=== PATIENT | male | born 1985 | race American Indian/Alaskan Native ===

== ENCOUNTER 2016-09-30 17:05 | Emergency (ER) | payer OTHER ==
[2016-09-30 18:05] LABS: Urine Drugs of Abuse Note Disclamer
[2016-09-30 18:14] LABS: Basophils % (Auto) 0.5 % (0.0-1.8); Eosinophils % (Auto) 1.1 % (0.0-4.3); Hematocrit 41.9 % (35.5-45.6); Hemoglobin 13.8 gm/dl (11.8-15.2); Mean Corpuscular HGB Conc 33 % (32-34); Mean Corpuscular Hemoglobin 30 pg (28-32); Mean Corpuscular Volume 90 fl (84-94); Platelet Count 167 K/mm3 (140-440); Red Blood Count 4.66 M/mm3 (3.65-5.03); Red Cell Distribution Width 14.6 % (13.2-15.2)
[2016-09-30 18:33] LABS: Anion Gap 20 mmol/L; BUN/Creatinine Ratio 13.75; Blood Urea Nitrogen 11 mg/dL (9-20); Calcium 9.1 mg/dL (8.4-10.2); Carbon Dioxide 27 mmol/L (22-30); Chloride 100.3 mmol/L (98-107); Glucose 93 mg/dL (75-100); Potassium 4.2 mmol/L (3.6-5.0); Sodium 143 mmol/L (137-145)
[2016-09-30 19:15] LABS: Bilirubin,Urine NEG (Negative); Blood,Urine NEG (Negative); Ketones,Urine TR mg/dL (Negative); Leukocyte Esterase,Urine NEG (Negative); Mucus,Urine 3+ /HPF; Nitrite,Urine NEG (Negative)
--- NOTE | 2016-09-30 21:20 | Emergency Department Report ---
HPI - General Chief Complaint: Psych Time Seen by Provider: 09/30/16 17:42 - HPI HPI: This is a 31-year-old Gavi male presents to the emergency department by [facility] police after he left a suicide note for his mother. The patient denies that he did this but his mother was able to provide a picture of the letter. Patient recently had a relationship and and allegedly he has been acting very depressed lately. The patient says that he was just taking a walk to "clear my head" when the police picked him up "for no reason" and brought him here. There was some mention that the patient might have attempted to hang himself with a water hose but there is no signs of any trauma at this time. He denies any diagnosed medical or psychiatric conditions and is not on any medication regularly. He denies any auditory or visible hallucinations. ED Past Medical Hx - Past Medical History Additional medical history: pt refused to answer - Surgical History Additional Surgical History: pt refused to answer - Social History Smoking Status: Unknown if ever smoked ED Review of Systems ROS: Stated complaint: SUICIDE ATTEMPT Other details as noted in HPI Comment: All other systems reviewed and negative Constitutional: denies: chills, fever Eyes: denies: eye pain, eye discharge, vision change ENT: denies: ear pain, throat pain Respiratory: denies: cough, shortness of breath, wheezing Cardiovascular: denies: chest pain, palpitations Gastrointestinal: denies: abdominal pain, nausea, diarrhea Genitourinary: denies: urgency, dysuria Musculoskeletal: denies: back pain, joint swelling, arthralgia Skin: denies: rash, lesions Neurological: denies: headache, weakness, paresthesias Psychiatric: depression, suicidal thoughts. denies: auditory hallucinations, visual hallucinations Physical Exam - Physical Exam Physical Exam: GENERAL: The patient is well-developed well-nourished. HEENT: Normocephalic. Atraumatic. Extraocular motions are intact. Patient has moist mucous membranes. Pupils equal reactive to light. NECK: Supple. Trachea is midline. CHEST/LUNGS: Clear to auscultation. There is no respiratory distress noted. HEART/CARDIOVASCULAR: Regular. There is no tachycardia. There is no gallop rub or murmur. ABDOMEN: Abdomen is soft, nontender. Patient has normal bowel sounds. There is no abdominal distention. SKIN: Skin is warm and dry. NEURO: The patient is awake, alert, and oriented. The patient is cooperative. The patient has no focal neurologic deficits. The patient has normal speech and gait. MUSCULOSKELETAL: There is no tenderness or deformity. There is no limitation range of motion. There is no evidence of acute injury. ED Medical Decision Making - Lab Data Result diagrams: 09/30/16 17:58 09/30/16 17:58 - Medical Decision Making 31-year-old male presents with what appears to be depression, suicidal ideations and possible attempt. The patient denies all this but mom is able to provide a suicide note written and presented today. This reason the patient has been made a 1013. Labs are unremarkable. Vital signs stable throughout his course. Patient is medically cleared for psychiatric placement. - Differential Diagnosis depression, bipolar disorder, schizophrenia, schizoaffective, substance abu Critical Care Time: No Critical care attestation.: If time is entered above; I have spent that time in minutes in the direct care of this critically ill patient, excluding procedure time. ED Disposition Clinical Impression: Suicidal ideations Depression Qualifiers: Depression Type: unspecified Qualified Code(s): F32.9 - Major depressive disorder, single episode, unspecified Disposition: [id number]/TX-[id number] PSY HOSP/PSY UNIT Is pt being admited?: No Condition: Stable Referrals: PRIMARY CAREMD [Primary Care Provider] - 3-5 Days Time of Disposition: 21:54
--- NOTE | 2016-10-01 18:52 | Consultation ---
History of Present Illness - Reason for Consult Reason for consult: psych consult - Chief Complaint Chief complaint: Cc suicidal Patient is a 31 year old BM with no past psych history. Patient presents to [facility] with symptoms of depression. He notes that hes been depressed since June 2013 and only recently did several triggers worsen his symptoms. He presents this information with a nonlinear story that tended to jump topics and had many vague references and even blanks. He seems guarded with the true story as to why he is here. At first he noted that a recent issue with his girlfriend had nothing to do with it and then changed the story that she doesnt understand him. At one point he neglected including an involved suicide note and attempts to hang self. He notes that he hasnt been able to deal with his unhappiness and feels nobody can help him. Therefore he decided that he needed to get away and therefore proceeded to write a note saying wilfrede- referring to him going to another state to start a new life. During this process he also visited a home to plan and prepare for his eventual - according to him when he gets old and dies. He denied any associated SI/HI/AH/VH currently. He denies any euphoria. No etoh use but admits to ongoing marijuana use for 3-4 weeks off/on. Meds: none Allergies none Past psych history: Inpt: none Oupt: none Suicide attempts: none No abuse history No medical history No family psych history other than his cousin with some issues Substance- no DUI or legal issues- no rehab, THC use as above Family History: Lives with his mom, 12th grade education, no children, ?dating, no work AAL x3, apathic and vague and guarded Mood: depressed with constricted affect Speech: normal rate and volume Thought process: tangential and circumstantial Though content: denies any SI/HI/AH/VH, +delusions Insight/judgment: limited A/P Patient is a 31 year old BM with no past psych history. Patient presents with a nonlinear story about feeling depressed for years with recently associated SI and an involved note and possible attempt to hang self. Dx: MDD with no psychosis, severe Depression- patient doesnt want any meds, need collateral to get a more complete story from family, continue with inpt placement on 1013 Medications and Allergies Allergies Allergy/AdvReac Type Severity Reaction Status Date / Time Unable to Assess Allergy Unverified 09/30/16 17:27 Mental Status Exam - Vital signs Last Vital Signs Temp 98.6 F 10/01/16 08:08 Pulse 61 10/01/16 08:08 Resp 16 10/01/16 08:08 BP 116/61 10/01/16 08:08 Pulse Ox 98 10/01/16 08:08 Results Result Diagrams: 09/30/16 17:58 09/30/16 17:58 Abnormal lab results 09/30/16 Range/Units 17:28 Ur Specific [place] 1.032 H (1.003-1.030) All other labs normal.
--- NOTE | 2016-10-02 13:13 | Progress Note ---
Subjective - Reason for Consult Consult date: 10/02/16 Reason for consult: Psychiatry Follow-up - Chief Complaint Chief complaint: "I really need help" Patient is a 31 year old BM with no past psych history. Today is calm and cooperative during assessment. He stated that he did write a letter stating that he wanted to , because he have nothing to live for. I spoke with his mother Britt Schilling [phone] and she stated that her son talks about dying often. She stated that her son tried hang himself by using a water hose in their basement prior to being admitted to [facility]. She stated that she does not feel safe leaving him alone at their house. He stated struggling with depression for 3 to 4 years and prefer being isolated from people. He denies SI/ HI's and AVH's. He rate his depression a 7/10, with 10 being the worse. He admit to erratic sleep and a poor appetite. Patient stated that he may consider taking medication. Mental Status Exam - Vital signs Last Vital Signs Temp 98.8 F 10/01/16 21:00 Pulse 68 10/01/16 21:00 Resp 18 10/01/16 21:00 BP 112/68 10/01/16 21:00 Pulse Ox 99 10/01/16 21:00 - Exam Narrative exam: MSE: Appearance: calm, cooperative Behavior: regular eye contact Speech: regular rate and tone Mood: "okay" Affect: labile Thought Process: circumstantial Thought Content: denies SI/HI's and AVH's Motor Activity: lying in bed Cognition: A/Ox 3 Insight: limited Judgment: limited Assessment and Plan Impression: MDD, severe type. Today is calm and cooperative during assessment. Recommendation/Plan: Continue 1013 with placement to inpatient psy services. Start Seroquel 200 mg PO HS for mood. Discussed possible metabolic side effects of Seroquel with patient. Discussed generalized coping skill with patient. Discussed the risk/benefits of medication therapy with patient.
--- NOTE | 2016-10-03 14:02 | Progress Note ---
Subjective - Reason for Consult Consult date: 10/03/16 Reason for consult: Psychiatry Follow-up - Chief Complaint Chief complaint: "I didn't take my medication" Patient is a 31 year old BM with no past psych history. Today is calm and cooperative during assessment. He stated that he did not take the Seroquel last night. He stated that he does not like taking medication for his own "personal" reason. He acknowledge eating a sandwich today and his dinner yesterday. He stated that he slept 8 hours last night. He denies SI/HI's, AVH's, and depression. He stated that he feel "fine." Mental Status Exam - Vital signs Last Vital Signs Temp 98.6 F 10/03/16 08:19 Pulse 70 10/03/16 08:19 Resp 18 10/03/16 08:19 BP 119/66 10/03/16 08:19 Pulse Ox 100 10/03/16 08:19 - Exam Narrative exam: Impression: MDD, severe type. Today is calm and cooperative during assessment. Patient refused his Seroquel last night. Recommendation/Plan: Continue 1013 with placement to inpatient psy services. Start Seroquel 200 mg PO HS for mood. Discussed possible metabolic side effects of Seroquel with patient. Discussed generalized coping skill with patient.
--- NOTE | 2016-10-04 15:51 | Progress Note ---
Subjective - Reason for Consult Consult date: 10/04/16 Reason for consult: follow up - Chief Complaint Chief complaint: "I want a program for marijuana abuse." Patient is a 31 year old BM with no past psych history. Today is calm and cooperative during assessment. He declines medication. He minimizes the actions he took before he came to the hospital. He denies SI/HI's, AVH's, and depression. He states he feels "a lot better" after he talked to him mom. Mental Status Exam - Vital signs Last Vital Signs Temp 98.2 F 10/04/16 09:05 Pulse 69 10/04/16 09:05 Resp 18 10/04/16 09:05 BP 120/72 10/04/16 09:05 Pulse Ox 99 10/04/16 09:05 Assessment and Plan MSE: Appearance: calm, cooperative Behavior: regular eye contact Speech: regular rate and tone Mood: "a lot better." Affect: superficial Thought Process: circumstantial Thought Content: denies SI/HI's and AVH's Motor Activity: lying in bed Cognition: A/Ox 3 Insight: limited Judgment: limited Original Note: Subjective - Reason for Consult Consult date: 10/03/16 Reason for consult: Psychiatry Follow-up Impression: MDD, severe type. Today is calm and cooperative during assessment. Patient declines medication. Recommendation/Plan: Continue 1013 with placement to inpatient psy services.
--- NOTE | 2016-10-05 15:44 | Progress Note ---
Subjective - Reason for Consult Consult date: 10/05/16 Reason for consult: follow up - Chief Complaint Chief complaint: "I know what I need now." Patient is a 31 year old BM who presented after a plan to by suicide. He had a water hose, wrote a suicide note, and called a home. Today is calm and cooperative during assessment. He declines medication. He describes his actions, including writing the suicide note, having the water hose, and calling the home. He acknowledges the severity of his actions and depressive symptoms. He states that day was the first time he thought about suicide. He states normally his actions are thought out but this was different. He states he thought no one was there for him to talk to, but no realizes he could see a therapist or go to his sister for support. He denies SI/HI's, AVH' s, and depression. (0). He has a history of acing out in middle school. He received counseling at that time. No history of medication trials or seeing a psychiatrist. He denies having SI prior to this episode. He reports no sleep disturbances He reports an erratic eating pattern but denies this to be a problem He is currently unemployed and looking for work He was smoking marijuana 2-3 x daily. He states he does not want to hurt his mother and he realizes he would if he . He has family support He voiced his intention to seek outpatient mental health care. He has not smoked marijuana in 3 weeks and desires to stay abstinent There are no suicides in the family. Mental Status Exam - Vital signs Last Vital Signs Temp 98.6 F 10/05/16 09:05 Pulse 98 H 10/05/16 09:05 Resp 18 10/05/16 09:05 BP 120/74 10/05/16 09:05 Pulse Ox 97 10/05/16 09:05 Assessment and Plan MSE: Appearance: calm, cooperative Behavior: regular eye contact Speech: regular rate and tone Mood: "a lot better." Affect: appropriate Thought Process: circumstantial Thought Content: denies SI/HI's and AVH's Motor Activity: within normal limits Cognition: A/Ox 3 Insight: limited Judgment: limited Impression: MDD, severe type. Today is calm and cooperative during assessment. Patient declines medication. Recommendation/Plan: He is currently on 101 with pending transfer to an accepting psychiatric facility. Considering his length of stay, reevaluation may indicate a lower risk of self harm and lack of imminent risk. Reevaluate in 24 hours to determine proper diso.
[2016-10-06 08:47] VITALS: BP 124/78
--- NOTE | 2016-10-06 12:24 | Progress Note ---
Subjective - Reason for Consult Consult date: 10/06/16 Reason for consult: Psychiatry Follow-up - Chief Complaint Chief complaint: "I appreciate you all." Patient is a 31 year old BM who presented after a plan to by suicide. He had a water hose, wrote a suicide note, and called a home. Today is calm and cooperative during assessment. He stated that he appreciate the job the psychiatry team has done with . He stated since his admission, he has had time to think about his previous actions (writing a suicide letter, coordinating his , and water hose to hang self), which he feel "embarrassed." He agree to outpatient psy services once discharged. Britt Short his mother will be the patient's support system per a conversation with her [phone]. He stated that he is eating all his meals and denies sleep disturbances. On previous assessment, he stated a poor appetite and erratic sleep. He denies SI/HI's and AVH's. He rate his depression 0/10, with 10 being the worse. Mental Status Exam - Vital signs Last Vital Signs Temp 99.6 F 10/06/16 08:45 Pulse 73 10/06/16 08:45 Resp 16 10/06/16 08:47 BP 124/78 10/06/16 08:45 Pulse Ox 98 10/06/16 08:47 - Exam Narrative exam: MSE: Appearance: calm, cooperative Behavior: regular eye contact Speech: regular rate and tone Mood: "well" Affect: appropriate Thought Process: linear Thought Content: denies SI/HI's and AVH's Motor Activity: within normal limits Cognition: A/Ox 3 Insight: fair Judgment: fair Assessment and Plan Impression: MDD, severe type. Today is calm and cooperative during assessment. Patient declines medication. Recommendation/Plan: Rescind 1013. Once discharged patient will be given outpatient psy services for [facility]. Patient does not need a prescription for Seroquel.
--- NOTE | 2016-10-06 21:44 | Event Note ---
Date: 10/06/16 The patient is seen and examined. He is pleasant, calm, cooperative, and he is not homicidal nor suicidal. He has a GCS of 15, and an NIH score of 0. He is seen in conjunction with psychiatry, and they have discontinued the patient's 1013. He is suitable to be discharged at this point time, and he is going to follow up as an outpatient. Return precautions are reviewed. Vital Signs (72 hours) 10/03/16 10/04/16 10/04/16 22:00 09:05 20:20 Temperature 98.2 F 98.2 F 99.4 F Pulse Rate 65 69 73 Respiratory 18 18 20 Rate Blood Pressure 126/83 120/72 120/84 [Left] O2 Sat by Pulse 100 99 100 Oximetry 10/04/16 10/05/16 10/05/16 23:00 09:05 16:50 Temperature 98.6 F 98.8 F Pulse Rate 98 H 90 Respiratory 16 18 20 Rate Blood Pressure 120/74 130/72 [Left] O2 Sat by Pulse 18 L 97 98 Oximetry 10/06/16 10/06/16 08:45 08:47 Temperature 99.6 F Pulse Rate 73 Respiratory 16 16 Rate Blood Pressure 124/78 [Left] O2 Sat by Pulse 98 98 Oximetry Lab Results 09/30/16 09/30/16 09/30/16 Range/Units 17:28 17:28 17:58 WBC (4.5-11.0) K/mm3 RBC (3.65-5.03) M/mm3 Hgb (11.8-15.2) gm/dl Hct (35.5-45.6) % MCV (84-94) fl MCH (28-32) pg MCHC (32-34) % RDW (13.2-15.2) % Plt Count (140-440) K/mm3 Lymph % (Auto) (13.4-35.0) % [place] % (Auto) (0.0-7.3) % Eos % (Auto) (0.0-4.3) % Baso % (Auto) (0.0-1.8) % Lymph # (1.2-5.4) K/mm3 [place] # (0.0-0.8) K/mm3 Eos # (0.0-0.4) K/mm3 Baso # (0.0-0.1) K/mm3 Seg Neutrophils % (40.0-70.0) % Seg Neutrophils # (1.8-7.7) K/mm3 Sodium 143 (137-145) mmol/L Potassium 4.2 (3.6-5.0) mmol/L Chloride 100.3 (98-107) mmol/L Carbon Dioxide 27 (22-30) mmol/L Anion Gap 20 mmol/L BUN 11 (9-20) mg/dL Creatinine 0.8 (0.8-1.5) mg/dL Estimated GFR > 60 ml/min BUN/Creatinine Ratio 13.75 % Glucose 93 (75-100) mg/dL Calcium 9.1 (8.4-10.2) mg/dL Urine Color Yellow (Yellow) Urine Turbidity Clear (Clear) Urine pH 5.0 (5.0-7.0) Ur Specific [place] 1.032 H (1.003-1.030) Urine Protein 30 mg/dl (Negative) mg/dL Urine Glucose (UA) Neg (Negative) mg/dL Urine Ketones Tr (Negative) mg/dL Urine Blood Neg (Negative) Urine Nitrite Neg (Negative) Urine Bilirubin Neg (Negative) Urine Urobilinogen 2.0 (<2.0) mg/dL Ur Leukocyte Esterase Neg (Negative) Urine WBC (Auto) 1.0 (0.0-6.0) /HPF Urine RBC (Auto) 2.0 (0.0-6.0) /HPF U Epithel Cells (Auto) < 1.0 (0-13.0) /HPF Hyaline Casts 1 /LPF Urine Mucus 3+ /HPF Urine Opiates Screen Presumptive negative Urine Methadone Screen Presumptive negative Ur Barbiturates Screen Presumptive negative Ur Phencyclidine Scrn Presumptive negative Ur Amphetamines Screen Presumptive negative U Benzodiazepines Scrn Presumptive negative Urine Cocaine Screen Presumptive negative U Marijuana (THC) Screen Presumptive positive Drugs of Abuse Note Disclamer Plasma/Serum Alcohol (0-0.07) gm% 09/30/16 09/30/16 Range/Units 17:58 17:58 WBC 4.0 L (4.5-11.0) K/mm3 RBC 4.66 (3.65-5.03) M/mm3 Hgb 13.8 (11.8-15.2) gm/dl Hct 41.9 (35.5-45.6) % MCV 90 (84-94) fl MCH 30 (28-32) pg MCHC 33 (32-34) % RDW 14.6 (13.2-15.2) % Plt Count 167 (140-440) K/mm3 Lymph % (Auto) 36.3 H (13.4-35.0) % [place] % (Auto) 9.2 H (0.0-7.3) % Eos % (Auto) 1.1 (0.0-4.3) % Baso % (Auto) 0.5 (0.0-1.8) % Lymph # 1.5 (1.2-5.4) K/mm3 [place] # 0.4 (0.0-0.8) K/mm3 Eos # 0.0 (0.0-0.4) K/mm3 Baso # 0.0 (0.0-0.1) K/mm3 Seg Neutrophils % 52.9 (40.0-70.0) % Seg Neutrophils # 2.1 (1.8-7.7) K/mm3 Sodium (137-145) mmol/L Potassium (3.6-5.0) mmol/L Chloride (98-107) mmol/L Carbon Dioxide (22-30) mmol/L Anion Gap mmol/L BUN (9-20) mg/dL Creatinine (0.8-1.5) mg/dL Estimated GFR ml/min BUN/Creatinine Ratio % Glucose (75-100) mg/dL Calcium (8.4-10.2) mg/dL Urine Color (Yellow) Urine Turbidity (Clear) Urine pH (5.0-7.0) Ur Specific [place] (1.003-1.030) Urine Protein (Negative) mg/dL Urine Glucose (UA) (Negative) mg/dL Urine Ketones (Negative) mg/dL Urine Blood (Negative) Urine Nitrite (Negative) Urine Bilirubin (Negative) Urine Urobilinogen (<2.0) mg/dL Ur Leukocyte Esterase (Negative) Urine WBC (Auto) (0.0-6.0) /HPF Urine RBC (Auto) (0.0-6.0) /HPF U Epithel Cells (Auto) (0-13.0) /HPF Hyaline Casts /LPF Urine Mucus /HPF Urine Opiates Screen Urine Methadone Screen Ur Barbiturates Screen Ur Phencyclidine Scrn Ur Amphetamines Screen U Benzodiazepines Scrn Urine Cocaine Screen U Marijuana (THC) Screen Drugs of Abuse Note Plasma/Serum Alcohol < 0.01 (0-0.07) gm%
== END 2016-10-06 22:32 ==
LOC: ED 17:05 → EEVIPCON 17:05 → ED 10-06 22:32
DX: R45.851 Suicidal ideations (principal); F32.9 Major depressive disorder, single episode, unspecified
CPT/HCPCS: 36415; 80048; 80307; 81001; 85025; 99285; G0480; 80320

== ENCOUNTER 2017-06-21 01:05 | Emergency (ER) | payer OTHER ==
[2017-06-21 02:30] LABS: Bilirubin,Urine NEG (Negative); Blood,Urine NEG (Negative); Color,Urine Yellow (Yellow); Mucus,Urine 3+ /HPF; Protein,Urine <15 mg/dL mg/dL (Negative)
[2017-06-21 02:34] LABS: Amphetamine Screen,Urine PRESUMPTIVE NEGATIVE; Benzodiazepines Screen,Urine PRESUMPTIVE NEGATIVE; Cocaine Screen,Urine PRESUMPTIVE NEGATIVE; Methadone Screen,Urine PRESUMPTIVE NEGATIVE; Opiate Screen,Urine PRESUMPTIVE NEGATIVE
[2017-06-21 02:45] LABS: Cannabinoid Screen,Urine PRESUMPTIVE POSITIVE
[2017-06-21 04:00] LABS: Basophils % (Auto) 0.6 % (0.0-1.8); Eosinophils % (Auto) 0.5 % (0.0-4.3); Hematocrit 40.8 % (35.5-45.6); Hemoglobin 13.7 gm/dl (11.8-15.2); Lymphocytes # (Auto) 1.2 K/mm3 (1.2-5.4); Lymphocytes % (Auto) 23.9 % (13.4-35.0); Mean Corpuscular HGB Conc 34 % (32-34); Mean Corpuscular Hemoglobin 30 pg (28-32); Mean Corpuscular Volume 88 fl (84-94); Monocytes # (Auto) 0.3 K/mm3 (0.0-0.8); Monocytes % (Auto) 7.1 % (0.0-7.3); Platelet Count 162 K/mm3 (140-440); Red Blood Count 4.63 M/mm3 (3.65-5.03)
[2017-06-21 04:17] LABS: Alanine Aminotransferase 9 units/L (7-56); Albumin 4.6 g/dL (3.9-5); BUN/Creatinine Ratio 14; Blood Urea Nitrogen 11 mg/dL (9-20); Calcium 9.2 mg/dL (8.4-10.2); Hemolysis Index 5
--- NOTE | 2017-06-21 04:21 | Emergency Department Report ---
HPI - General Chief Complaint: Psych Time Seen by Provider: 06/21/17 03:26 - [facility] HPI: [facility] The patient is 31-year-old male presenting with a chief complaint of suicidal ideation. The patient was brought in by [facility] Department for evaluation. [facility] Department informed our nursing ( Dallas Roa) that the patient had called 911 and informed them that he wanted to be killed by a white mounted police officer. In the ED the patient denies suicidal or homicidal ideation in addition to auditory or visual hallucinations. When asked about the call to 911 in him stating that he wanted to be killed by a mounted police officer patient replies he called the non-emergency number to report what an associated head posted on their Facebook page about him. The patient states he called being on an emergency number to report this person because they were putting his "business out on the street." Patient states he had a history of being treated for suicidal ideation in the past. Patient denies any other complaints Location: Mental state Duration: [See above] Quality: Suicidal Severity: Severe Modifying factors: [see above] Context: [see above] Mode of transportation: [not driving] ED Past Medical Hx - Past Medical History Previous Medical History?: No Hx Psychiatric Treatment: Yes (suicidal ideation) - Surgical History Past Surgical History?: No - Family History Family history: no significant - Social History Smoking Status: Never Smoker Substance Use Type: Alcohol (occasional) - Medications Home Medications: Home Medications Medication Instructions Recorded Confirmed Last Taken Type No Known Home Medications [No 10/02/16 06/21/17 Unknown History Reported Home Medications] ED Review of Systems ROS: Stated complaint: MH EVAL Other details as noted in HPI Constitutional: no symptoms reported Eyes: denies: eye pain ENT: denies: throat pain Respiratory: denies: shortness of breath Cardiovascular: denies: chest pain Gastrointestinal: denies: abdominal pain Genitourinary: denies: dysuria Musculoskeletal: denies: back pain Neurological: denies: headache Psychiatric: suicidal thoughts (per [facility]). denies: auditory hallucinations, visual hallucinations, homicidal thoughts Physical Exam - Physical Exam Vital Signs: Vital Signs 06/21/17 01:23 Temperature 98.8 F Pulse Rate 78 Respiratory 18 Rate Blood Pressure 118/67 [Left] O2 Sat by Pulse 98 Oximetry Physical Exam: GENERAL: The patient is well-developed well-nourished male sitting on stretcher not appearing to be in acute distress. [] HEENT: Normocephalic. Atraumatic. Extraocular motions are intact. Patient has moist mucous membranes. NECK: Supple. Trachea midline CHEST/LUNGS: Clear to auscultation. There is no respiratory distress noted. HEART/CARDIOVASCULAR: Regular. There is no tachycardia. There is no gallop rub or murmur. ABDOMEN: Abdomen is soft, nontender. Patient has normal bowel sounds. There is no abdominal distention. SKIN: There is no rash. There is no edema. There is no diaphoresis. NEURO: The patient is awake, alert, and oriented. The patient is cooperative. The patient has no focal neurologic deficits. The patient has normal speech. Cranial nerves II through XII grossly intact, no drift MUSCULOSKELETAL: There is no evidence of acute injury. ED Course Vital Signs 06/21/17 01:23 Temperature 98.8 F Pulse Rate 78 Respiratory 18 Rate Blood Pressure 118/67 [Left] O2 Sat by Pulse 98 Oximetry ED Medical Decision Making - Lab Data Laboratory Tests 06/21/17 06/21/17 06/21/17 01:20 01:20 03:51 WBC 4.9 RBC 4.63 Hgb 13.7 Hct 40.8 MCV 88 MCH 30 MCHC 34 RDW 14.0 Plt Count 162 Lymph % (Auto) 23.9 Osborne % (Auto) 7.1 Eos % (Auto) 0.5 Baso % (Auto) 0.6 Lymph # 1.2 Osborne # 0.3 Eos # 0.0 Baso # 0.0 Seg Neutrophils % 67.9 Seg Neutrophils # 3.3 Sodium Potassium Chloride Carbon Dioxide Anion Gap BUN Creatinine Estimated GFR BUN/Creatinine Ratio Glucose Calcium Total Bilirubin AST ALT Alkaline Phosphatase Total Protein Albumin Albumin/Globulin Ratio Urine Color Yellow Urine Turbidity Clear Urine pH 6.0 Ur Specific [place] 1.025 Urine Protein <15 mg/dl Urine Glucose (UA) Neg Urine Ketones Tr Urine Blood Neg Urine Nitrite Neg Urine Bilirubin Neg Urine Urobilinogen 2.0 Ur Leukocyte Esterase Neg Urine WBC (Auto) 4.0 Urine RBC (Auto) 1.0 U Epithel Cells (Auto) < 1.0 Urine Mucus 3+ Salicylates Urine Opiates Screen Presumptive negative Urine Methadone Screen Presumptive negative Acetaminophen Ur Barbiturates Screen Presumptive negative Ur Phencyclidine Scrn Presumptive negative Ur Amphetamines Screen Presumptive negative U Benzodiazepines Scrn Presumptive negative Urine Cocaine Screen Presumptive negative U Marijuana (THC) Screen Presumptive positive Drugs of Abuse Note Disclamer Plasma/Serum Alcohol 06/21/17 06/21/17 06/21/17 03:51 03:51 03:51 WBC RBC Hgb Hct MCV MCH MCHC RDW Plt Count Lymph % (Auto) Osborne % (Auto) Eos % (Auto) Baso % (Auto) Lymph # Osborne # Eos # Baso # Seg Neutrophils % Seg Neutrophils # Sodium 140 Potassium 3.9 Chloride 99.3 Carbon Dioxide 28 Anion Gap 17 BUN 11 Creatinine 0.8 Estimated GFR > 60 BUN/Creatinine Ratio 14 Glucose 86 Calcium 9.2 Total Bilirubin 1.50 H AST 13 ALT 9 Alkaline Phosphatase 45 Total Protein 7.4 Albumin 4.6 Albumin/Globulin Ratio 1.6 Urine Color Urine Turbidity Urine pH Ur Specific [place] Urine Protein Urine Glucose (UA) Urine Ketones Urine Blood Urine Nitrite Urine Bilirubin Urine Urobilinogen Ur Leukocyte Esterase Urine WBC (Auto) Urine RBC (Auto) U Epithel Cells (Auto) Urine Mucus Salicylates < 0.3 L Urine Opiates Screen Urine Methadone Screen Acetaminophen < 5.0 L Ur Barbiturates Screen Ur Phencyclidine Scrn Ur Amphetamines Screen U Benzodiazepines Scrn Urine Cocaine Screen U Marijuana (THC) Screen Drugs of Abuse Note Plasma/Serum Alcohol 06/21/17 03:51 WBC RBC Hgb Hct MCV MCH MCHC RDW Plt Count Lymph % (Auto) Osborne % (Auto) Eos % (Auto) Baso % (Auto) Lymph # Osborne # Eos # Baso # Seg Neutrophils % Seg Neutrophils # Sodium Potassium Chloride Carbon Dioxide Anion Gap BUN Creatinine Estimated GFR BUN/Creatinine Ratio Glucose Calcium Total Bilirubin AST ALT Alkaline Phosphatase Total Protein Albumin Albumin/Globulin Ratio Urine Color Urine Turbidity Urine pH Ur Specific [place] Urine Protein Urine Glucose (UA) Urine Ketones Urine Blood Urine Nitrite Urine Bilirubin Urine Urobilinogen Ur Leukocyte Esterase Urine WBC (Auto) Urine RBC (Auto) U Epithel Cells (Auto) Urine Mucus Salicylates Urine Opiates Screen Urine Methadone Screen Acetaminophen Ur Barbiturates Screen Ur Phencyclidine Scrn Ur Amphetamines Screen U Benzodiazepines Scrn Urine Cocaine Screen U Marijuana (THC) Screen Drugs of Abuse Note Plasma/Serum Alcohol < 0.01 - Differential Diagnosis suicidal ideation Critical care attestation.: If time is entered above; I have spent that time in minutes in the direct care of this critically ill patient, excluding procedure time. ED Disposition Clinical Impression: Suicidal behavior Disposition: DC/TX-65 PSY HOSP/PSY UNIT Is pt being admited?: No Does the pt Need Aspirin: No Condition: Serious Referrals: PRIMARY CARE, [Primary Care Provider] - 3-5 Days DELVIS MAXWELL MD [Staff Physician] - 3-5 Days (Dr. Maxwell is a healthcare consulting manager. Please follow up with him for further evaluation of your elevated total bilirubin) Time of Disposition: 04:32 (awaiting placement)
[2017-06-21] MEDS ORDERED: GEODON IM ONE ×2 (07:04)
--- NOTE | 2017-06-21 18:33 | Consultation ---
History of Present Illness - Reason for Consult Consult date: 06/21/17 Reason for consult: plan for suicide by endoscopy rn - Chief Complaint Chief complaint: "I have no idea." - History of Present Psychiatric Illness Patient is a 31 year old BM seen for psychiatric evaluation in the ER. He states "I have no idea why I'm here." Per the record: The patient was brought in by [facility]'s Department and [facility] stated the patient had called 911 and informed them that he wanted to be killed by a white police communications dispatcher. He gave a story about how a girl he went to high school with was posting his name on Facebook. He spoke of the FB situation during the psychiatric evaluation. He showed the LOADING UNIT TOOL SETTER a screen shot of the facebook post from a [facility] dispatcher, Lety Girard, which stated she hates her job. She stated she read a disturbing email last night and to pray for Short. They have a mutual friend on Facebook. He states his friend sent that to him. He was upset by it and called all the non emergency numbers he could find for the [facility] and the surrounding counties. He denies calling 911. He states he does not understand why the police showed up at his house. He adamantly denies suicidal ideation or homicidal ideation. He denies psychotic symptoms. He reports he is sleeping well. He is not taking any medications. He denies a history of bipolar d/o or schizophrenia. He reports smoking marijuana occasionally. UDS positive for THC. Past psych history: [facility] 09/2016 for depression/suicidal ideation. He was discharged after 5 days. No abuse history No medical history Per the record: No family psych history other than his cousin with some issues Family History: Lives with his mom, 12th grade education, no children, unemployed Medications and Allergies Allergies Allergy/AdvReac Type Severity Reaction Status Date / Time No Known Allergies Allergy Verified 06/21/17 17:57 Home Medications Medication Instructions Recorded Confirmed Last Taken Type No Known Home Medications [No 10/02/16 06/21/17 Unknown History Reported Home Medications] Active Meds: Active Medications Quetiapine Fumarate (Seroquel) 100 mg PO HS NATALIE Past psychiatric history - Past Medical History Past Medical History: No medical history Mental Status Exam - Vital signs Last Vital Signs Temp 98.0 F 06/21/17 07:05 Pulse 98 H 06/21/17 07:05 Resp 20 06/21/17 07:05 BP 117/78 06/21/17 07:05 Pulse Ox 99 06/21/17 07:05 - Exam Orientation: time, place, person Affect: anxious Mood: congruent with affect Thought content: other (no SI/HI) Thought Process: Tangential Perceptions: none Speech: pressured (loud) Concentration: distractible Motor activity: restless Level of consciousness: alert Memory: Intact Sleep Symptoms: None Interaction: cooperative Results Result Diagrams: 06/21/17 03:51 06/21/17 03:51 Abnormal lab results 06/21/17 06/21/17 06/21/17 Range/Units 03:51 03:51 03:51 Total Bilirubin 1.50 H (0.1-1.2) mg/dL Salicylates < 0.3 L (2.8-20.0) mg/dL Acetaminophen < 5.0 L (10.0-30.0) ug/mL All other labs normal. Assessment and Plan Assessment and plan: Impression: He denies depression or suicidal ideation. He showed the LOADING UNIT TOOL SETTER a screen shot of the facebook post from a [facility] dispatcher, Lety Girard, which stated she hates her job. She stated she read a disturbing email last night and to pray for Short. They have a mutual friend on Facebook. He states his friend sent that to him. He was upset by it and called all the non emergency numbers he could find for the [facility] and the surrounding counties. He denies calling 911. He states he does not understand why the police showed up at his house. He adamantly denies suicidal ideation or homicidal ideation. He denies psychotic symptoms. He reports he is sleeping well. bipolar d/o, current episode manic cannabis use d/o Patient is a 31 year old BM with a previous ER stay for depression/suicidal ideation. Dx: schizoaffective d/o substance induced mood d/o Recommendation: Continue 1013 and transfer to inpatient psych Seroquel 100mg hs for mood/sleep Collateral is needed from family, mother joni [phone]
[2017-06-22] MEDS ORDERED: HALDOL IM PRN (11:19)
[2017-06-22] MEDS ORDERED: ATIVAN IM PRN (11:19)
--- NOTE | 2017-06-22 12:49 | Progress Note ---
Subjective - Reason for Consult Consult date: 06/22/17 Reason for consult: Psychiatry Follow-up - Chief Complaint Chief complaint: "I need to be gone" 31 year old BM seen for psychiatric evaluation in the ER. This patient is known to me. Today the patient is calm, but hyper verbal during the assessment. His story about why he called multiple 911 dispatchers was not logical. He would not confirm or deny erratic sleep prior to his admission to the ER. 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 He stated that he has not taken meds or seen a psychiatrist since his last admission to [facility]. He denies SI/HI's and AVH's. He refused to take Seroquel last night. Mental Status Exam - Vital signs Last Vital Signs Temp 98 F 06/22/17 07:39 Pulse 80 06/22/17 07:39 Resp 16 06/22/17 07:39 BP 118/80 06/22/17 07:39 Pulse Ox 100 06/22/17 07:39 - Exam Narrative exam: MSE: Appearance: calm, cooperative Behavior: regular eye contact, hyper verbal Speech: regular rate and tone Mood: "okay" Affect: normal Thought Process: tangential Thought Content: denies SI/HI's and AVH's, paranoia Motor Activity: sitting up in bed Cognition: A/O x3 Insight: variable Judgment: variable Assessment and Plan Impression: Bipolar DO, current episode manic. Cannabis Use DO. Today the patient is calm, but hyper verbal during the assessment. DDx: R/O Schizoaffective DO, R/O Substance Induced Mood/Psychotic DO Recommendation: Continue 1013 with placement to inpatient psy services. Continue Seroquel 100 mg PO HS for mood/psychosis and start Depakote 500 mg PO BID for mood. Discussed the importance of mood stabilizer with patient. He stated that he may take his medication. Discussed possible metabolic side effects of Seroquel with patient. Gather collateral from mother Amy at [phone].
[2017-06-22 13:43] LABS: Lipase 21 units/L (13-60)
--- NOTE | 2017-06-23 12:55 | Progress Note ---
Subjective - Reason for Consult Consult date: 06/23/17 Reason for consult: Psychiatry Follow-up - Chief Complaint Chief complaint: "I don't know why she did that" 31 year old BM seen for psychiatric evaluation in the ER. This patient is known to me. Today the patient is calm, and still hyper verbal during the assessment. He stated knowing the exact reason why a friend Ms Lety Girard posted about him on facebook. He feels that Ms Girard has access to his medical records reference his previous admission in Sep 2017 to [facility] per a suicide note he wrote. I explained to the patient that outside agencies does not have access to his medical records, but he is adamant that this particular person does. He denies SI/HI's and AVH's. Per the MAR, the patient took Seroquel, but refused Depakote. Mental Status Exam - Vital signs Last Vital Signs Temp 98.0 F 06/23/17 07:40 Pulse 88 06/23/17 07:40 Resp 16 06/23/17 07:40 BP 131/99 06/23/17 07:40 Pulse Ox 100 06/23/17 07:40 - Exam Narrative exam: MSE: Appearance: calm, cooperative Behavior: regular eye contact, hyper verbal Speech: regular rate and tone Mood: "okay" Affect: normal Thought Process: circumstantial Thought Content: denies SI/HI's and AVH's, delusional, hyper mu-ism Motor Activity: sitting up in bed Cognition: A/O x3 Insight: variable Judgment: variable Assessment and Plan Impression: Bipolar DO, current episode manic. Cannabis Use DO. Today the patient is calm, but hyper verbal during the assessment. DDx: R/O Schizoaffective DO, R/O Substance Induced Mood/Psychotic DO Recommendation: Continue 1013 with placement to inpatient psy services. Continue Seroquel 100 mg PO HS for mood/psychosis and Depakote 500 mg PO BID for mood. Discussed the importance of mood stabilizer with patient. He stated that he may take his medications. Discussed possible metabolic side effects of Seroquel with patient. Gather collateral from mother Amy at [phone].
[2017-06-24 07:56] VITALS: BP 123/84
--- NOTE | 2017-06-24 13:26 | Progress Note ---
Subjective - Reason for Consult Consult date: 06/24/17 Reason for consult: Psychiatric Follow-up Evaluation - Chief Complaint Chief complaint: "" 31 year old BM seen for psychiatric evaluation in the ER. Mental Status Exam - Vital signs Last Vital Signs Temp 98.3 F 06/24/17 07:55 Pulse 64 06/24/17 07:55 Resp 18 06/24/17 08:00 BP 123/84 06/24/17 07:55 Pulse Ox 98 06/24/17 08:00 - Exam Narrative exam: Mental Status Exam: Appearance: calm, cooperative Behavior: regular eye contact Speech: regular rate and tone Mood: "okay" Affect: congruent to mood Thought Process: circumstantial Thought Content: denies SI/HI's and AVH's Motor Activity: sitting up in bed Cognition: A/O x3 Insight: fair Judgment: fair Assessment and Plan Impression: Bipolar DO, current episode manic. Cannabis Use DO. Today the patient is calm, but hyper verbal during the assessment. DDx: R/O Schizoaffective DO, R/O Substance Induced Mood/Psychotic DO Recommendation: 1. Continue 1013 with placement to inpatient psychiatric services. 2. Continue Seroquel 100 mg PO HS for mood/psychosis and Depakote 500 mg PO BID for mood. Discussed the importance of mood stabilizer with patient. He stated that he may take his medications. 3. Discussed possible metabolic side effects of Seroquel with patient. Gather collateral from mother Amy at [phone].
== END 2017-06-24 09:43 ==
LOC: ED 01:05 → EEVIPCON 01:05 → ED 06-24 09:43
DX: R45.851 Suicidal ideations (principal)
CPT/HCPCS: 36415; 80053; 80307; 81001; 82150; 83690; 85025; 96372; 99285; G0480; J3486; 80320